=== PATIENT | female | born 1955 | race Caucasian/White ===

== ENCOUNTER 2021-09-23 11:14 | Observation (INO) ==
[2021-09-23 11:54] LABS: ABS Eosinophils 0.1 10^3/ul (0-0.6); ABS Lymphocytes 1.6 10^3/ul (1.0-4.8); ABS Monocytes 0.8 10^3/ul (0-0.8); ABS Neutrophils 5.6 10^3/ul (1.5-7.7); Eosinophil % 0.9 %; Hematocrit 46 % (35-47); Hemoglobin 15.1 g/dL (12.0-16.0); Lymphocyte % 19.7 %; Mean Corpuscular HGB Conc 33 g/dL (31-36); Mean Corpuscular Hemoglobin 30 pg (27-31); Mean Corpuscular Volume 90 fL (80-97); Mean Platelet Volume 7.9 fL (7.4-10.4); Platelet Count 293 10^3/uL (150-450); Red Blood Count 5.05 10^6 /uL (3.70-4.87); Red Cell Distribution Width 14 % (10-15); White Blood Count 8.1 10^3/uL (3.5-10.8)
[2021-09-23 11:59] LABS: INR 1.04 (0.86-1.15)
[2021-09-23 12:15] LABS: High Sens Troponin Baseline < 3 pg/mL (<15)
[2021-09-23 12:47] LABS: ALT 17 U/L (7-52); AST 18 U/L (13-39); Albumin 4.4 g/dL (3.2-5.2); Albumin/Globulin Ratio 1.5 (1-3); Alkaline Phosphatase 47 U/L (35-149); Anion Gap 13 mmol/L (2-11); Blood Urea Nitrogen 14 mg/dL (6-24); CO2 Carbon Dioxide 27 mmol/L (22-32); Calcium 10.3 mg/dL (8.6-10.3); Chloride 97 mmol/L (101-111); Glucose 180 mg/dL (70-100); Potassium 3.7 mmol/L (3.5-5.0); Sodium 137 mmol/L (135-145); Total Protein 7.4 g/dL (6.4-8.9); eGFR CKD-EPI 86.4 (>60)
[2021-09-23 13:23] LABS: High Sensitivity Troponin 1 Hr < 3 pg/mL (<15)
[2021-09-23 15:41] LABS: Activated Partial Thrombo Time 30.7 seconds (26.0-38.0)
[2021-09-23 15:59] LABS: C Reactive Protein 2.75 mg/L (<8.01)
[2021-09-23 16:21] LABS: Cholesterol 137 mg/dL; LDL Cholesterol 54 mg/dL; Triglycerides 138 mg/dL
[2021-09-23] MEDS: Enoxaparin 40 MG/0.4 ML SYR SUBCUT SCH (16:57)
[2021-09-23] MEDS ORDERED: Dextrose 50% Syringe 50 ml 25 GM/50 ML SYRINGE IV PUSH PRN (18:34)
[2021-09-23] MEDS: Insulin GLARGINE 100 un/ml 10 ml VIAL SUBCUT SCH (22:15)
[2021-09-23] MEDS: DULoxetine DR 30 mg CAP PO SCH (22:15)
[2021-09-24 05:56] LABS: ABS Basophils 0.1 10^3/ul (0-0.2); ABS Eosinophils 0.1 10^3/ul (0-0.6); ABS Lymphocytes 1.6 10^3/ul (1.0-4.8); ABS Monocytes 0.7 10^3/ul (0-0.8); ABS Neutrophils 3.3 10^3/ul (1.5-7.7); Eosinophil % 1.4 %; Hematocrit 41 % (35-47); Hemoglobin 13.6 g/dL (12.0-16.0); Lymphocyte % 28.4 %; Mean Corpuscular HGB Conc 33 g/dL (31-36); Mean Corpuscular Hemoglobin 29 pg (27-31); Mean Corpuscular Volume 89 fL (80-97); Mean Platelet Volume 7.8 fL (7.4-10.4); Nucleated Red Blood Cells % 0.1; Platelet Count 226 10^3/uL (150-450); Red Blood Count 4.62 10^6 /uL (3.70-4.87); Red Cell Distribution Width 13 % (10-15); White Blood Count 5.7 10^3/uL (3.5-10.8)
[2021-09-24 06:06] LABS: INR 1.03 (0.86-1.15)
[2021-09-24 06:21] LABS: Calcium 9.7 mg/dL (8.6-10.3); Potassium 3.9 mmol/L (3.5-5.0); eGFR CKD-EPI 86.4 (>60)
[2021-09-24 07:56] LABS: Magnesium 1.9 mg/dL (1.9-2.7)
[2021-09-24] MEDS ORDERED: Perflutren Lipid Microsphere 3 ML VIAL ONE (08:13)
[2021-09-24] MEDS: DULoxetine DR 30 mg CAP PO SCH ×2 (08:17→21:35)
[2021-09-24] MEDS ORDERED: Regadenoson 0.4 MG/5 ML SYRINGE ONE (11:15)
[2021-09-24] MEDS: Enoxaparin 40 MG/0.4 ML SYR SUBCUT SCH (17:20)
[2021-09-24] MEDS: Insulin GLARGINE 100 un/ml 10 ml VIAL SUBCUT SCH (21:36)
[2021-09-25 05:30] LABS: ABS Eosinophils 0.1 10^3/ul (0-0.6); ABS Lymphocytes 1.9 10^3/ul (1.0-4.8); ABS Monocytes 0.6 10^3/ul (0-0.8); ABS Neutrophils 2.5 10^3/ul (1.5-7.7); Eosinophil % 2.1 %; Hematocrit 39 % (35-47); Hemoglobin 12.9 g/dL (12.0-16.0); Lymphocyte % 37.4 %; Mean Corpuscular HGB Conc 33 g/dL (31-36); Mean Corpuscular Hemoglobin 30 pg (27-31); Mean Corpuscular Volume 90 fL (80-97); Mean Platelet Volume 8.4 fL (7.4-10.4); Nucleated Red Blood Cells % 0.1; Platelet Count 207 10^3/uL (150-450); Red Blood Count 4.34 10^6 /uL (3.70-4.87); Red Cell Distribution Width 14 % (10-15)
[2021-09-25 05:54] LABS: Calcium 9.3 mg/dL (8.6-10.3); Potassium 3.8 mmol/L (3.5-5.0); eGFR CKD-EPI 90.6 (>60)
[2021-09-25] MEDS ORDERED: NS 0.9% 1000 ml BAG 1,000 ML IV SCH (06:00)
[2021-09-25] MEDS ORDERED: VERAPAMIL 2.5 MG/ML 2 ML VIAL ** 5 mg/2 ml ONE (08:29)
[2021-09-25] MEDS ORDERED: Heparin 1,000 UNIT/ML 10 ml (10,000 UNITS) CATHLAB/DIALYSIS ONE (08:29)
[2021-09-25] MEDS ORDERED: Heparin 2 UNITS/ML 1000 mls 2,000 ML IV ONE (08:30)
[2021-09-25] MEDS ORDERED: Midazolam 5 mg/5 ml VIAL 1 mg/ml 5 ml VIAL (5 mg) ONE (08:30)
[2021-09-25] MEDS ORDERED: fentaNYL 100 mcg/2 ml 50 MCG/ML VIAL ONE (08:30)
[2021-09-25] MEDS ORDERED: Iohexol 350 (CONTRAST) 200 ML MDV IV ONE (08:30)
[2021-09-25] MEDS ORDERED: nitroGLYCERIN DRIP 25,000 MCG/250 ML BTL ONE (08:30)
[2021-09-25] MEDS ORDERED: Lidocaine 1% MPF 5 ML VIAL ONE (08:31)
[2021-09-25] MEDS: DULoxetine DR 30 mg CAP PO SCH (10:30)
[2021-09-25 11:40] VITALS: BP 104/46
== END 2021-09-25 12:50 | disposition home or self-care (01) ==
LOC: ED 11:14 → EDHOLD 11:14 → SUATTDRO 16:52 → EDHOLD 20:00 → MEDTELE 20:42
PROVIDERS: ADMIT Internal Medicine; ATTEND Internal Medicine